=== PATIENT | male | born 1955 | race Caucasian/White ===

== ENCOUNTER 2020-10-06 14:50 | Emergency (ER) | payer MEDICARE ==
[2020-10-06] MEDS ORDERED: SODIUM CHLORIDE 0.9% (FLUSH) 10 ML SYG IV PRN (15:03)
[2020-10-06] MEDS ORDERED: fentaNYL CITRATE INJ 50 MCG/ML 2 ML AMP IV ONE (15:16)
[2020-10-06] MEDS ORDERED: ONDANSETRON INJ 4 MG/2 ML VIAL IV ONE (15:16)
[2020-10-06] MEDS ORDERED: fentaNYL CITRATE INJ 50 MCG/ML 2 ML AMP ONE (15:17)
[2020-10-06] MEDS ORDERED: ONDANSETRON INJ 4 MG/2 ML VIAL ONE (15:17)
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
[2020-10-06 17:58] VITALS: BP 150/62; TEMP 98
[2020-10-06] MEDS ORDERED: TETANUS,DIPHTHERIA,PERTUSSIS 1 EA SYG IM ONE ×2 (18:05→18:07)
[2020-10-06 19:10] VITALS: O2SAT 959
== END 2020-10-06 18:15 | disposition short-term general hospital (02) ==
LOC: ER 14:50
DX: S32.018A Other fracture of first lumbar vertebra, initial encounter for closed fracture (principal); S32.028A Other fracture of second lumbar vertebra, initial encounter for closed fracture; S32.038A Other fracture of third lumbar vertebra, initial encounter for closed fracture; S22.41XA Multiple fractures of ribs, right side, initial encounter for closed fracture; S22.42XA Multiple fractures of ribs, left side, initial encounter for closed fracture; S82.842A Displaced bimalleolar fracture of left lower leg, initial encounter for closed fracture; M47.812 Spondylosis without myelopathy or radiculopathy, cervical region; I10 Essential (primary) hypertension; E11.9 Type 2 diabetes mellitus without complications; R10.9 Unspecified abdominal pain; R11.0 Nausea; R07.9 Chest pain, unspecified; M62.830 Muscle spasm of back; V03.00XA Pedestrian on foot injured in collision with car, pick-up truck or van in nontraffic accident, initial encounter; Y92.008 Other place in unspecified non-institutional (private) residence as the place of occurrence of the external cause; Z23 Encounter for immunization
CPT/HCPCS: 36415; 70450; 71045; 71250; 72125; 72128; 72131; 73610; 74150; 80053; 80320; 81001; 82550; 82553; 84484; 85025; 85610; 85730; 90471; 90715; 93005; J2405; J3010